=== PATIENT | male | born 2000 | race Hispanic/Latino ===

== ENCOUNTER 2024-02-15 17:54 | Emergency (ER) | payer OTHER, SELFPAY ==
[2024-02-15] VITALS (7 sets, daily range): BP systolic 124–135; BP diastolic 69–83
--- NOTE | 2024-02-15 18:41 | ED.GENMED ---
History of Present Illness
General
Chief Complaint: Abdominal Symptoms
Source: patient
Exam Limitations: none
Time Seen by Provider: 02/15/24 18:24
Travel History
Have you had any contact with someone who has COVID-19?: No
Do you have any symptoms of coronavirus? Fever > 100 degrees, chills, cough, shortness of breath, sore throat, loss of taste or smell, muscle aches, or headache?: No
History of Present Illness
History of Present Illness:
24-year-old male presents complaining of abdominal pain nausea vomiting and diarrhea. The pain is on the left side of his abdomen. Vomiting is persistent today anything down even the pain radiates to his back. He had episodes similar to this in
the past and has been evaluated by Xuan MONTANO. He has had endoscopies and colonoscopies has been diagnosed with irritable bowel syndrome. He complains of chronic belching as well. No blood in the vomit or the stool. He is not taking medications
regularly.
Phy Exam
Physical Exam
Physical Exam:
General: Uncomfortable appearing male no acute respiratory distress
HEENT: Normocephalic atraumatic
Heart: Regular rate and rhythm no murmurs
Lungs: Clear no wheeze or rales abdomen: Soft
Tender to the left mid and lower abdomen. Nondistended no guarding rebound normal bowel sounds negative Villa sign
Extremities: No cyanosis or edema
Skin; warm, no rashes
Course
Orders/Labs/Results
Orders:
Orders
02/15/24 18:31
Electrocardiogram (*1) Urgent
Reason for Study: Abdominal Pain
02/15/24 18:32
EKG- Treatment ONCE
02/15/24 18:35
Complete Blood Count/With Diff Urgent
Comprehensive Metabolic Panel Urgent
Lipase Urgent
Troponin I Urgent
02/15/24 18:39
0.9% Sodium Chloride 1000 ml [Nss] 1,000 ml IV BOLUS
Famotidine [Pepcid] 20 mg IV NOW STA
Ondansetron Injectable [Zofran] 4 mg IV NOW STA
02/15/24 18:40
CT Abd/pelvis W Iv Cont Urgent
Comment:
Reason For Exam: abdominal pain, vomiting
Abnormal Lab Results
02/15/24
18:35
MCV 79.3 L fL
(80.0-94.0)
Absolute Lymphs (auto) 0.8 L 10^3/uL
(1.2-3.4)
Neutrophils % 82.4 H %
(42.2-75.2)
Lymphocytes % 11.5 L %
(20.5-51.1)
02/15/24 18:35
02/15/24 18:35
Vital Signs
Initial and Last Documented VS:
Initial Vital Signs
Temp Pulse Resp BP Pulse Ox
98.6 F 69 20 132/73 100
02/15/24 17:57 02/15/24 17:57 02/15/24 17:57 02/15/24 17:57 02/15/24 17:57
Last Documented Vital Signs
Temp Pulse Resp BP Pulse Ox
98.6 F 71 17 127/75 98
02/15/24 17:57 02/15/24 21:30 02/15/24 21:00 02/15/24 21:00 02/15/24 21:30
MDM/Problems Addressed
Differential Diagnosis Includes:
Abdominal pain with vomiting. Question viral illness GERD versus gastroenteritis versus bowel obstruction
Will evaluate for electrolyte abnormality with blood work. Treat symptoms with Zofran fluids and Pepcid. Patient is quite tender on exam will order CT scan
*Critical Care Note
Total Time (30-74mins, 75-104mins- exclusive of procedures): Not Applicable
Update Note
Update Note:
Patient reexamined now tolerating oral fluids with benign abdominal assessment. CT negative labs reviewed without significant finding. Patient was given an oral challenge and doing well. Question IBS versus viral illness. Will prescribe Zofran
and have him follow-up specialist. Stable for discharge
ED Attending Note
-
Portions of this chart may have been created with voice recognition software.� Occasional wrong word or��sound alike� substitutions may have occurred due to the inherent limitations of voice recognition software.
Discharge Plan
Departure
Patient Disposition: Home (Routine Discharge)
Date of Disposition: 02/15/24
Time of Disposition: 22:20
Patient with high blood pressure during this ER visit?: No
Discharge Problem:
Vomiting
Instructions: Nausea and Vomiting, Adult (DC)
Prescriptions:
New
ondansetron HCl 4 mg tablet
4 mg PO Q8H PRN (Reason: nausea and vomiting) Qty: 10 0RF
Referrals:
NONE,* [Family Provider] -
Activity Restrictions/Additional Instructions:
Drink plenty of fluids. Use Zofran if needed for nausea. Stick with a bland diet. Return if worse otherwise follow-up with your special
Interventions
Interventions:
*Risk Screen - Suicide Last Done: 02/15/24 17:57
*General Assessment Last Done: 02/15/24 17:57
*Neglect/Abuse Screening Last Done: 02/15/24 17:57
BO-Rnffio-Sqxfzjjoxx Assessment Last Done: 02/15/24 18:37
Discharge Date and Time
Print Language: GEORGIAN
[2024-02-15 18:45] LABS: % Basophils 0.1 % (0-2); % Eosinophils 0.3 % (0-6); % Immature Granulocytes 0.1 % (0-0.5); % Lymphocytes 11.5 % (20.5-51.1); % Monocytes 5.6 % (1.7-9.3); % Neutrophils 82.4 % (42.2-75.2); Absolute Lymphocytes 0.8 10^3/uL (1.2-3.4); Absolute Monocytes 0.4 10^3/uL (0.1-0.6); Absolute Neutrophils 5.7 10^3/uL (1.4-6.5); Hematocrit 40.3 % (39.0-52.0); Mean Corp Hgb Conc. 34.7 g/dL (33.0-37.0); Mean Corpuscular Hgb 27.6 pg (27.0-31.0); Mean Corpuscular Volume 79.3 fL (80.0-94.0); Mean Platelet Volume 9.9 fL (7.4-10.4); Nucleated Red Blood Cells % 0 % (-); Platelet Count 240 10^3/uL (130-400); Red Blood Cell Count 5.08 10^6/uL (4.70-6.10)
[2024-02-15] MEDS: ZOFRAN 4 MG IV (18:46)
[2024-02-15] MEDS: PEPCID 20 MG IV (18:46)
[2024-02-15] MEDS: NSS 1000 IV (18:47)
[2024-02-15 19:06] LABS: ALT (SGPT) 25 U/L (0-50); AST (SGOT) 26 U/L (17-59); Albumin 4.3 g/dl (3.5-5.0); Alkaline Phosphatase 51 U/L (38-126); Blood Urea Nitrogen 17 mg/dl (9-20); Calcium 9.4 mg/dl (8.4-10.2); Carbon Dioxide 30 mmol/L (22-30); Chloride 101 mmol/L (98-107); Glucose 87 mg/dl (70-99); Lipase 83 U/L (23-300); Sodium 137 mmol/L (135-145); Total Bilirubin 0.8 mg/dl (0.2-1.3); Total Protein 7.1 g/dl (6.3-8.2); eGFR > 60.00
[2024-02-15 19:08] LABS: Troponin I < 0.012 ng/ml
== END 2024-02-15 22:33 | disposition home or self-care (01) ==
LOC: EMR 17:54
PROVIDERS: Physician Assistant; EMERGENCY PHYSICIAN Emergency Medicine
DX: R10.9 Unspecified abdominal pain (principal); R11.2 Nausea with vomiting, unspecified; R19.7 Diarrhea, unspecified
CPT/HCPCS: 99284; 96374; 96375; 96361; 74177; 80053; 83690; 84484; 85025; 93005; Q9967